=== PATIENT | male | born 1985 | race Caucasian/White ===

== ENCOUNTER 2016-05-26 12:08 | Inpatient (IN) | payer OTHER ==
[~2016-05-26] VITALS: Ht 172.7 cm; Wt 97.5 kg
[2016-05-26 12:15] VITALS: BP 139/96
[2016-05-26] MEDS ORDERED: TRAZODONE50 MG PO (12:16)
[2016-05-26 12:58] LABS: HEMATOCRIT 37.8 % (42.0-52.0); MEAN CELL VOLUME 71.9 fl (80.0-94.0); MEAN CORPUSCULAR HGB 22.8 pg (27.0-31.0); MEAN CORPUSCULAR HGB CONC 31.7 g/dl (33.0-37.0); MEAN PLATELET VOLUME 10.7 fl (9.6-12.3); PLATELET COUNT AUTOMATED 103 10*3/uL (130-400); RED BLOOD COUNT 5.26 10*6/uL (4.50-5.90); RED CELL DISTRI WIDTH 19.2 % (0-14.5); WHITE BLOOD COUNT 3.4 10*3/uL (4.8-10.8)
[2016-05-26 13:19] LABS: ALKALINE PHOSPHATASE 86 U/L (45-117); ATYPICAL LYMPHS 3 % (0-0); BILIRUBIN, TOTAL 1.2 mg/dl (0.2-1.0); BUN 11 mg/dl (7-24); CARBON DIOXIDE 22 mmol/L (21-32); CHLORIDE 98 mmol/L (98-107); EST GLOM FILT AFRICAN AMERICAN > 60 ml/min; GLUCOSE 122 mg/dL (65-99); LYMPHOCYTE # 0.7 10*3/uL (1.3-4.4); MICROCYTOSIS SLIGHT; MONOCYTE # 0.4 10*3/uL (0.1-1.0); MYELOCYTES 1 % (0-0); NEUTROPHIL # 2.2 10*3/uL (2.3-7.9); NEUTROPHILS 66 % (47-73); PLATELET SUFFICIENCY LOW (NORMAL); SGOT/AST 43 IU/L (3-35); SGPT/ALT 30 U/L (12-78); SODIUM 135 mmol/L (136-145); TOTAL CELLS COUNTED 100 #CELLS; TOTAL PROTEIN 7.7 gm/dL (6.4-8.2)
[2016-05-26 13:20] LABS: SCHISTOCYTES FEW; TARGET CELLS FEW
[2016-05-26 13:35] VITALS: BP 141/89
[2016-05-26 14:12] LABS: INTERNATIONAL NORM RATIO 1.3 (2.0-3.5); PROTHROMBIN TIME 13.4 SECONDS (9.0-12.4)
[2016-05-26 14:38] VITALS: BP 148/88
[2016-05-26 14:55] LABS: LA>2 REFLEX 2 HR DRAW NOW
[2016-05-26 15:41] LABS: LA>2 RFLX FOLLOW UP AT 2 HRS 3.5 mmol/L (0.4-2.0)
[2016-05-26 16:00] VITALS: BP 150/94
[2016-05-26 17:30] LABS: LA>2 REFLEX 4 HR DRAW NOW
[2016-05-26 18:12] LABS: BILIRUBIN, DIRECT 0.2 mg/dL (0.0-0.2); BILIRUBIN, INDIRECT 0.7 (0.2-0.8); BILIRUBIN, TOTAL 0.9 mg/dl (0.2-1.0); C-REACTIVE PROTEIN 2.81 MG/DL (0-0.3)
[2016-05-26 20:00] VITALS: BP 122/66
[2016-05-26 20:08] LABS: BILIRUBIN NEGATIVE (NEGATIVE); BLOOD NEGATIVE (NEGATIVE); CLARITY SL CLOUDY (CLEAR); COLOR YELLOW (YELLOW); GLUCOSE NEGATIVE (NEGATIVE); KETONE NEGATIVE (NEGATIVE); LEUKO ESTERASE NEGATIVE (NEGATIVE); NITRITE NEGATIVE (NEGATIVE); PROTEIN TRACE (NEGATIVE); SPECIFIC GRAVITY 1.025 (1.005-1.030); UROBILINOGEN 0.2 E.U./dl (0.2-1.0)
[2016-05-26 20:16] LABS: URINE AMPHETAMINES < 1000 (1000ng/ml); URINE BARBITURATES < 200 (200ng/ml); URINE COCAINE < 300 (300ng/ml)
[2016-05-26 20:19] LABS: RBC 0-2 rbc/hpf (0-2)
[2016-05-26 20:20] LABS: BACTERIA 2+; HYALINE CAST 0-2; MUCOUS TRACE; URINE REFLEX COMMENT YES (NO)
[2016-05-27] VITALS: BP 149/58
[2016-05-27 04:00] VITALS: BP 111/62
[2016-05-27 08:00] VITALS: BP 118/67
[2016-05-27 09:59] LABS: CPK 13 U/L (39-308)
[2016-05-27 10:03] LABS: CKMB < 0.5 ng/ml (0.5-3.6); TROPONIN I < 0.015 ng/ml (<0.5)
[2016-05-27 11:32] LABS: LA>2 REFLEX 2 HR DRAW NOW
[2016-05-27 12:00] VITALS: BP 115/68
[2016-05-27 12:02] LABS: LA>2 RFLX FOLLOW UP AT 2 HRS 2.4 mmol/L (0.4-2.0)
[2016-05-27 13:45] LABS: LA>2 REFLEX 4 HR DRAW NOW
[2016-05-27 16:00] VITALS: BP 126/79
[2016-05-27 20:00] VITALS: BP 124/72
[2016-05-28] VITALS: BP 106/59
[2016-05-28 06:03] LABS: BUN 9 mg/dl (7-24); CARBON DIOXIDE 25 mmol/L (21-32); CHLORIDE 103 mmol/L (98-107); EST GLOM FILT AFRICAN AMERICAN > 60 ml/min; GLUCOSE 99 mg/dL (65-99); POTASSIUM 3.8 mmol/L (3.5-5.1); SODIUM 138 mmol/L (136-145); VANCOMYCIN TROUGH 18.7 ug/mL (10-20)
[2016-05-28 06:41] LABS: MEAN CELL VOLUME 71.9 fl (80.0-94.0); MEAN CORPUSCULAR HGB 23.4 pg (27.0-31.0); MEAN CORPUSCULAR HGB CONC 32.6 g/dl (33.0-37.0); MEAN PLATELET VOLUME 10.9 fl (9.6-12.3); PLATELET COUNT AUTOMATED 78 10*3/uL (130-400); RED BLOOD COUNT 3.67 10*6/uL (4.50-5.90); RED CELL DISTRI WIDTH 19.5 % (0-14.5); WHITE BLOOD COUNT 2.2 10*3/uL (4.8-10.8)
[2016-05-28 06:49] LABS: HEMATOCRIT 26.4 % (42.0-52.0); HEMOGLOBIN 8.6 g/dl (14.0-18.0)
[2016-05-28 07:28] LABS: ATYPICAL LYMPHS 1 % (0-0); BASOPHIL # 0.1 10*3/uL (0-0.1); BASOPHILS 4 % (0-1); EOSINOPHILS 1 % (1-4); HYPOCHROMIA MODERATE; LYMPHOCYTE # 0.9 10*3/uL (1.3-4.4); MICROCYTOSIS SLIGHT; MONOCYTE # 0.3 10*3/uL (0.1-1.0); NEUTROPHILS 44 % (47-73); PLATELET SUFFICIENCY LOW (NORMAL); ROULEAUX SLIGHT; TOTAL CELLS COUNTED 100 #CELLS
[2016-05-28 07:29] LABS: TARGET CELLS MODERATE; TEAR DROP CELLS FEW
[2016-05-28 08:00] VITALS: BP 124/62
[2016-05-28 12:00] VITALS: BP 133/60
[2016-05-28 16:00] VITALS: BP 116/59
[2016-05-28 20:00] VITALS: BP 117/70
[2016-05-29] VITALS: BP 111/64
[2016-05-29 08:00] VITALS: BP 129/73
[2016-05-29] MEDS ORDERED: THERA TABS1 TAB PO (10:26)
[2016-05-29] MEDS ORDERED: DICYCLOMINE HCL20 MG PO (10:26)
[2016-05-29] MEDS ORDERED: CARBIDOPA/LEVOD1 TA1 PO (10:26)
[2016-05-29] MEDS ORDERED: LOPRESSOR25 MG PO (10:26)
[2016-05-29] MEDS ORDERED: ATARAX,VISTARIL50 MG PO (10:26)
[2016-05-29] MEDS ORDERED: NATURE'S BLEND F1 MG PO (10:26)
[2016-05-29] MEDS ORDERED: VITAMIN B-11 TAB PO (10:26)
[2016-05-29] MEDS ORDERED: METHOCARBAMOL750 M1 PO (10:26)
[2016-05-29] MEDS ORDERED: QUETIAPINE FUMA25 MG PO (12:23)
[2016-05-29] MEDS ORDERED: MINOCYCLINE100 MG PO (12:24)
[2016-05-30 16:09] LABS: ORGANISM ID Not indicated. (.); SPECIMEN SOURCE Urine (.); STREPTOCOCCUS PNEUMONIAE AG Negative (Negative)
== END 2016-05-29 12:40 | disposition home or self-care (01) | DRG 871 ==
LOC: ED 12:08 → EDHOLD 12:46 → 5E 12:46
PROVIDERS: Hospitalist; Internal Medicine; Student in an Organized Health Care Education/Training Program
PROC: 02HV33Z Insertion of Infusion Device into Superior Vena Cava, Percutaneous Approach (ICD-10-PCS; principal; 2016-05-27)
DX: A41.9 Sepsis, unspecified organism (principal); D61.811 Other drug-induced pancytopenia; E87.2 Acidosis; E87.1 Hypo-osmolality and hyponatremia; F11.23 Opioid dependence with withdrawal; R65.20 Severe sepsis without septic shock; L98.499 Non-pressure chronic ulcer of skin of other sites with unspecified severity; D50.9 Iron deficiency anemia, unspecified; E87.6 Hypokalemia; I10 Essential (primary) hypertension; J45.909 Unspecified asthma, uncomplicated; Z98.890 Other specified postprocedural states; Z82.49 Family history of ischemic heart disease and other diseases of the circulatory system; Z88.0 Allergy status to penicillin; Z80.42 Family history of malignant neoplasm of prostate; Z88.8 Allergy status to other drugs, medicaments and biological substances